=== PATIENT | female | born 1935 | race Caucasian/White ===

== ENCOUNTER 2017-05-23 06:55 | Day surgery (SDC) | payer MEDICARE ==
[2017-05-20 16:20] LABS: BASOPHILS # (AUTO) 0.1 X10'3 (0-0.2); BASOPHILS % (AUTO) 0.6 % (0-1); EOSINOPHILS # (AUTO) 0.2 X10'3 (0-0.9); EOSINOPHILS % (AUTO) 1.8 % (0-6); LYMPHOCYTES # (AUTO) 2.9 X10'3 (1.1-4.8); LYMPHOCYTES % (AUTO) 28.5 % (21-51); MEAN CORPUSCULAR HEMOGLOBIN 33.6 PG (27.0-31.0); MEAN CORPUSCULAR HGB CONC 33.9 % (33.0-36.5); MEAN PLATELET VOLUME 9.8 FL (7.4-10.4); MONOCYTES # (AUTO) 0.6 X10'3 (0-0.9); MONOCYTES % (AUTO) 6.1 % (2-12); NEUTROPHILS # (AUTO) 6.4 X10'3 (1.8-7.7); PRE OP HEMATOCRIT 46.7 % (35.0-45.0); PRE OP HEMOGLOBIN 15.8 g/dL (12.0-16.0); PRE OP PLATELET COUNT 196 X10'3 (140-440); RED BLOOD COUNT 4.72 X10'6 (4.20-5.60); RED CELL DISTRIBUTION WIDTH 12.3 % (11.5-14.5)
[2017-05-20 16:24] LABS: ALBUMIN 3.8 G/DL (3.4-5.0); ALBUMIN/GLOBULIN RATIO 1.2 (1.1-1.5); ALKALINE PHOSPHATASE 57 IU/L (46-116); BLOOD UREA NITROGEN 25 MG/DL (7-18); BUN/CREATININE RATIO 18.7 (6.6-38.0); CALCIUM 9.7 MG/DL (8.5-10.1); CHLORIDE 104 MMOL/L (99-107); CREATININE 1.34 MG/DL (0.40-0.90); PRE OP ALT 21 U/L (30-65); PRE OP ANION GAP 10 (8-16); PRE OP AST 17 U/L (10-37); PRE OP BILIRUB, TOTAL 0.5 MG/DL (0.0-1.0); PRE OP GLUCOSE 109 MG/DL (70-104); PRE OP POTASSIUM 4.3 MMOL/L (3.4-5.1); PRE OP SODIUM 142 MMOL/L (135-145); TOTAL CARBON DIOXIDE 28.3 MMOL/L (24-32); TOTAL PROTEIN 6.9 G/DL (6.4-8.2); eGFR 38 ML/MIN
[2017-05-20 16:29] LABS: PRE OP PROTIME 10.6 SECONDS (9.0-12.0)
[~2017-05-23] VITALS: Ht 175.3 cm; Wt 88.9 kg
[2017-05-23] VITALS (9 sets, daily range): BP systolic 140–167; BP diastolic 74–92
[~2017-05-23 06:55] MED LIST: APIX5TAB3 PO; ATOR40TA PO; LISI-644 PO; cefazolin 1gm/NS 100mL 100 ML IV ONE; famotidine 20mg tablet PO ONE; ringers solution, lacted 1,000 ML IV SCH
[2017-05-23] MEDS ORDERED: sevoflurane 250ml liquid IH ONE (09:08)
[2017-05-23] MEDS ORDERED: midazolam 2 mg/2 ml injection ONE (09:13)
[2017-05-23] MEDS ORDERED: fentaNYL/PF 50MCG/1 ML 2ML syringe ONE (09:13)
[2017-05-23] MEDS ORDERED: LIDOcaine 2% (20mg/ml) 5ml vial ONE (09:22)
[2017-05-23] MEDS ORDERED: propofol inj 20 ML IV ONE (09:22)
[2017-05-23] MEDS ORDERED: ePHEDrine 50MG/ML INJ. ONE (09:50)
[2017-05-23] MEDS ORDERED: ringers solution, lacted 1,000 ML IV SCH (10:06)
[2017-05-23] MEDS ORDERED: proCHLORperazine 10 MG/2 ml inj IV PRN (10:10)
[2017-05-23] MEDS ORDERED: meperidine/PF 50mg/ml syringe IV PRN ×3 (10:10)
[2017-05-23] MEDS ORDERED: morphine 4 MG/ML inj SYRINge IV PRN (10:10)
[2017-05-23] MEDS ORDERED: ondansetron/PF 4mg/2ml inj IV PRN (10:10)
== END 2017-05-23 11:02 | disposition home or self-care (01) ==
LOC: PAS 06:55
PROVIDERS: ATTEND Obstetrics & Gynecology
DX: D26.1 Other benign neoplasm of corpus uteri (principal); N85.8 Other specified noninflammatory disorders of uterus; I10 Essential (primary) hypertension; E11.9 Type 2 diabetes mellitus without complications; I48.91 Unspecified atrial fibrillation; I49.9 Cardiac arrhythmia, unspecified; Z87.891 Personal history of nicotine dependence; Z98.49 Cataract extraction status, unspecified eye; Z79.01 Long term (current) use of anticoagulants; Z90.89 Acquired absence of other organs; Z88.0 Allergy status to penicillin; Z86.73 Personal history of transient ischemic attack (TIA), and cerebral infarction without residual deficits; Z98.890 Other specified postprocedural states; Z79.899 Other long term (current) drug therapy
CPT/HCPCS: 36415; 58558; 80053; 82948; 85025; 85610; 85730; 86885; 86900; 86901; A4355; A6255; J0690; J2001; J2250; J2704; J3010; J7120; A7000

== ENCOUNTER 2018-02-12 11:41 | Emergency (ER) | payer MEDICARE ==
[~2018-02-12] VITALS: Ht 175.3 cm; Wt 88.2 kg
[~2018-02-12 11:41] MED LIST changes: -cefazolin 1gm/NS 100mL 100 ML IV ONE; -famotidine 20mg tablet PO ONE; -ringers solution, lacted 1,000 ML IV SCH
[2018-02-12 14:59] LABS: BASOPHILS % (AUTO) 0.3 % (0-1); EOSINOPHILS # (AUTO) 0.2 X10'3 (0-0.9); EOSINOPHILS % (AUTO) 1.9 % (0-6); HEMATOCRIT 48.9 % (35.0-45.0); HEMOGLOBIN 16.3 g/dl (12.0-16.0); LYMPHOCYTES # (AUTO) 1.8 X10'3 (1.1-4.8); LYMPHOCYTES % (AUTO) 16.3 % (21-51); MEAN CORPUSCULAR HEMOGLOBIN 33.3 PG (27.0-31.0); MEAN CORPUSCULAR HGB CONC 33.4 % (33.0-36.5); MEAN CORPUSCULAR VOLUME 99.8 FL (78-98); MEAN PLATELET VOLUME 8.5 FL (7.4-10.4); MONOCYTES # (AUTO) 0.4 X10'3 (0-0.9); NEUTROPHILS # (AUTO) 8.4 X10'3 (1.8-7.7); NEUTROPHILS % (AUTO) 77.5 % (42-75); PLATELET COUNT 204 X10'3 (140-440); RED CELL DISTRIBUTION WIDTH 12.8 % (11.5-14.5); WHITE BLOOD COUNT 10.9 X10'3 (4.5-11.0)
[2018-02-12 15:46] VITALS: BP 161/92
== END 2018-02-12 15:50 | disposition home or self-care (01) ==
LOC: ER 11:41
DX: K62.5 Hemorrhage of anus and rectum (principal); Z88.0 Allergy status to penicillin; Z79.899 Other long term (current) drug therapy
CPT/HCPCS: 36415; 85025; 99283

== ENCOUNTER 2022-05-29 15:43 | Emergency (ER) | payer BC ==
[~2022-05-29] VITALS: Ht 175.3 cm; Wt 84.5 kg
[~2022-05-29 15:43] MED LIST changes: -LISI-644 PO; +LISI20TA28 PO; +METO50TA17 PO; +TRAM50TA2 PO
[2022-05-29 15:49] VITALS: BP 141/90
[2022-05-29] MEDS ORDERED: TRAM50TA2 PO (17:30)
== END 2022-05-29 18:06 | disposition home or self-care (01) ==
LOC: ER 15:45
DX: S61.213A Laceration without foreign body of left middle finger without damage to nail, initial encounter (principal); Z88.0 Allergy status to penicillin; Z79.899 Other long term (current) drug therapy; Z79.1 Long term (current) use of non-steroidal anti-inflammatories (NSAID); E11.9 Type 2 diabetes mellitus without complications; I50.9 Heart failure, unspecified; X58.XXXA Exposure to other specified factors, initial encounter; Y93.89 Activity, other specified; Y92.89 Other specified places as the place of occurrence of the external cause; Y99.8 Other external cause status
CPT/HCPCS: 12001; 99283

== ENCOUNTER 2022-12-05 21:20 | Emergency (ER) | payer BC ==
[~2022-12-05] VITALS: Ht 170.2 cm; Wt 81.8 kg
[2022-12-05 21:39] VITALS: BP 156/90; PULSE 65; RESP 16; TEMP 98.1; O2SAT 98
== END 2022-12-06 03:15 | disposition left against medical advice (07) ==
LOC: ER 21:22
DX: K62.5 Hemorrhage of anus and rectum (principal); Z53.21 Procedure and treatment not carried out due to patient leaving prior to being seen by health care provider
CPT/HCPCS: 99281